=== PATIENT | male | born 1970 | race Caucasian/White ===

== ENCOUNTER → 2021-02-07 | Outpatient (CLI) | payer OTHER ==
[~2021-02-07] MED LIST: LOVENOX SY40 MG/0.4 SQ
[2021-02-07 11:08] LABS: HEMOGLOBIN 16.2 gm/dl (14.0-17.5); RED BLOOD COUNT 5.25 M/UL (4.20-5.50); WHITE BLOOD COUNT 10.1 K/UL (4.5-11.0)
[2021-02-07 11:51] LABS: BUN/CREATININE RATIO 9 (0-10)
== END ==
LOC: LAB 09:50
PROVIDERS: Family Medicine
DX: Z12.5 Encounter for screening for malignant neoplasm of prostate (principal); E78.5 Hyperlipidemia, unspecified; R35.1 Nocturia; E55.9 Vitamin D deficiency, unspecified
CPT/HCPCS: 36415; 80053; 80061; 84153; 85027

== ENCOUNTER → 2021-02-20 | Outpatient (CLI) | payer OTHER | LOC: KOH-I 10:46 | DX: F17.210 Nicotine dependence, cigarettes, uncomplicated (principal); R91.8 Other nonspecific abnormal finding of lung field | CPT/HCPCS: 71271 ==

== ENCOUNTER → 2021-03-04 | Outpatient (CLI) | payer OTHER ==
[2021-03-04 10:29] LABS: HEMOGLOBIN 16.3 gm/dl (14.0-17.5); RED BLOOD COUNT 5.32 M/UL (4.20-5.50); WHITE BLOOD COUNT 11.1 K/UL (4.5-11.0)
[2021-03-04 12:55] LABS: MONONUCLEAR CELLS 49 (75-100); POLYMORPHONUCLEAR % 51 (0-25); RBC (AUTOMATED) 1700 (0-100000); WBC (AUTOMATED) 4413 (0-500)
[2021-03-04 13:10] LABS: LDH, BODY FLUID 417 U/L; TOTAL PROTEIN, BODY FLUID 4.5 gm/dL
== END ==
LOC: US 08:00 → OPSV 08:00 → US 09:50
PROVIDERS: Internal Medicine Pulmonary Disease
DX: J90 Pleural effusion, not elsewhere classified (principal); Z87.891 Personal history of nicotine dependence
CPT/HCPCS: 36415; 71046; 83615; 83986; 84157; 85025; 85610; 87015; 87070; 87116; 87205; 87206; 89051

== ENCOUNTER → 2021-04-03 | Day surgery (SDC) | payer OTHER ==
[~2021-04-03] MED LIST changes: +NICOTINE PATCH1 EAC5 TD; +TRELEGY ELLIPT1 EACH INH; +VENTOLIN HFA INH
== END | disposition home or self-care (01) ==
LOC: OR 06:12
DX: Z12.11 Encounter for screening for malignant neoplasm of colon (principal); J44.9 Chronic obstructive pulmonary disease, unspecified; E78.2 Mixed hyperlipidemia; F17.200 Nicotine dependence, unspecified, uncomplicated; Z88.0 Allergy status to penicillin; Z79.899 Other long term (current) drug therapy; Z80.1 Family history of malignant neoplasm of trachea, bronchus and lung; Z82.49 Family history of ischemic heart disease and other diseases of the circulatory system; Z72.89 Other problems related to lifestyle
CPT/HCPCS: J2704; J7120

== ENCOUNTER → 2021-04-18 | Outpatient (CLI) | payer OTHER | LOC: KOH-I 04-16 13:00 → CT 14:13 | DX: R59.0 Localized enlarged lymph nodes (principal); J43.2 Centrilobular emphysema; I25.10 Atherosclerotic heart disease of native coronary artery without angina pectoris; J90 Pleural effusion, not elsewhere classified | CPT/HCPCS: 71260; Q9967 ==

== ENCOUNTER → 2021-05-03 | Outpatient (CLI) | payer OTHER | LOC: US 09:01 | DX: Z01.818 Encounter for other preprocedural examination (principal); J90 Pleural effusion, not elsewhere classified | CPT/HCPCS: 36415; 76604; 85049; 85610; 85730 ==

== ENCOUNTER → 2021-06-19 | Outpatient (CLI) | payer OTHER | LOC: HEART 5 10:35 → EXRD 10:35 | DX: J90 Pleural effusion, not elsewhere classified (principal) | CPT/HCPCS: 71046 ==

== ENCOUNTER → 2021-08-02 | Outpatient (CLI) | payer OTHER | LOC: CT 08:00 | DX: R91.1 Solitary pulmonary nodule (principal); J90 Pleural effusion, not elsewhere classified; R59.0 Localized enlarged lymph nodes; J92.9 Pleural plaque without asbestos; J43.9 Emphysema, unspecified; I25.10 Atherosclerotic heart disease of native coronary artery without angina pectoris | CPT/HCPCS: 71260; Q9967 ==

== ENCOUNTER → 2021-09-03 | Day surgery (SDC) | payer OTHER ==
[~2021-09-03] MED LIST changes: +OSTERA TABLET1 EACH PO; +TRELEGY ELLIPT1 EAC1 INH; +VIAGRA25 MG PO
[2021-09-03 13:05] LABS: BODY FLUID SOURCE PLEURAL
[2021-09-03 13:06] LABS: RBC (AUTOMATED) 46600 10^6; WBC (AUTOMATED) 222 10^3
[2021-09-03 13:07] LABS: MONONUCLEAR CELLS 24 %; POLYMORPHONUCLEAR 76 %
[2021-09-04 14:16] LABS: % CD 4 POS. LYMPH. 45.9 % (30.8-58.5); % CD 8 POS. LYMPH. 24.4 % (12.0-35.5); ABS. CD 8 SUPPRESSOR 317 /uL (109-897); ABSOLUTE CD 4 HELPER 597 /uL (359-1519); BASO (ABSOLUTE) 0.1 x10E3/uL (0.0-0.2); BASOS 1 % (Not Estab.); CD4/CD8 RATIO 1.88 (0.92-3.72); EOS 3 % (Not Estab.); EOS (ABSOLUTE) 0.3 x10E3/uL (0.0-0.4); HEMATOCRIT 43.8 % (37.5-51.0); HEMOGLOBIN 14.8 g/dL (13.0-17.7); IMMATURE GRANULOCYTES 0 % (Not Estab.); LYMPHS 16 % (Not Estab.); LYMPHS (ABSOLUTE) 1.3 x10E3/uL (0.7-3.1); MCH 30.6 pg (26.6-33.0); MCHC 33.8 g/dL (31.5-35.7); MCV 91 fL (79-97); MONOCYTES 3 % (Not Estab.); MONOCYTES(ABSOLUTE) 0.2 x10E3/uL (0.1-0.9); NEUTROPHILS 77 % (Not Estab.); NEUTROPHILS (ABSOLUTE) 6.2 x10E3/uL (1.4-7.0); PLATELETS 199 x10E3/uL (150-450); RBC 4.84 x10E6/uL (4.14-5.80); RDW 14.8 % (11.6-15.4); WBC 8.1 x10E3/uL (3.4-10.8)
== END | disposition home or self-care (01) ==
LOC: OR 07:39 → EDSTATUS 08:00
PROVIDERS: Internal Medicine Pulmonary Disease
DX: R59.0 Localized enlarged lymph nodes (principal); J43.9 Emphysema, unspecified; K21.9 Gastro-esophageal reflux disease without esophagitis; E78.2 Mixed hyperlipidemia; E55.9 Vitamin D deficiency, unspecified; F17.290 Nicotine dependence, other tobacco product, uncomplicated; R63.4 Abnormal weight loss; R42 Dizziness and giddiness; Z88.0 Allergy status to penicillin; Z20.822 Contact with and (suspected) exposure to COVID-19
CPT/HCPCS: 36415; 86360; 87015; 87116; 87205; 87206; 89051; J0330; J1100; J2405; J2704; J3010; J7120